=== PATIENT | male | born 1995 | race Caucasian/White ===

== ENCOUNTER 2021-09-10 08:19 | Emergency (ER) | payer BC, OTHER | END 2021-09-10 09:17 | disposition home or self-care (01) | LOC: MADERS 08:19 | DX: S06.0X9A Concussion with loss of consciousness of unspecified duration, initial encounter (principal); F17.210 Nicotine dependence, cigarettes, uncomplicated; W01.198A Fall on same level from slipping, tripping and stumbling with subsequent striking against other object, initial encounter; Y93.61 Activity, american tackle football | CPT/HCPCS: 70450; 72125 ==